=== PATIENT | female | born 1965 | race Caucasian/White ===

== ENCOUNTER → 2016-12-10 | Day surgery (SDC) | payer OTHER ==
[2016-11-30 11:50] VITALS: BMI 51.0
--- NOTE | 2016-12-03 09:36 | HISTORY & PHYSICAL EXAMINATION ---
DATE OF ADMISSION: 12/10/2016 SUBJECTIVE AND CHIEF COMPLAINT: Right shoulder pain. HISTORY OF PRESENT ILLNESS: The patient is a 51-year-old female who complains of right shoulder pain. She presents with pain and decreased range of motion on her right side. There was no traumatic event that caused her pain. The symptoms are occurring constantly. She describes the pain as aching and sharp. She had a previous cortisone injection 6 weeks ago with no relief. PAST MEDICAL HISTORY: Significant for anxiety, hypothyroidism, insulin-dependent diabetes, osteoarthritis and GERD. PAST SURGICAL HISTORY: Lumpectomy of the right breast, 5 biopsies of the right breast, total hysterectomy, right breast mastectomy, cleanup and debridement of incision. SOCIAL HISTORY: She denies alcohol use. She smokes 2-3 cigarettes a week. She denies IV drug use or illegal drug use. She lives in a 2-[address] house. 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 FAMILY HISTORY: Father has a history of heart disease. Mom had a history of pulmonary embolism. MEDICATIONS: Cholecalciferol, vitamin D3, amitriptyline 75 mg, furosemide 40 mg, alprazolam 1 mg, Chantix 1 mg, levothyroxine 112 mcg, Lyrica 200 mg, Bydureon 2 mg, Celebrex 200 mg, prednisone 10 mg, Protonix 40 mg, Humalog 100 units per mL, glimepiride 4 mg. ALLERGIES: PROZAC, WELLBUTRIN, EFFEXOR. REVIEW OF SYSTEMS: She denies fevers, chills, headaches, weight loss, double vision, blurry vision, sore throat, hearing loss, tremors, dizziness, numbness or tingling, tired, thirsty, hot and cold intolerance, abdominal pain, nausea, vomiting, diarrhea, heartburn, chest pain, swelling into the legs or feet, frequency going to the bathroom, pain or burning with urination, wheezing, cough, depression, thoughts to harm herself or harm others. She is positive for joint pain, stiffness and swelling of the right shoulder. Some shortness of breath walking up and down stairs. Nervousness and anxiousness. OBJECTIVE: GENERAL APPEARANCE: The patient is a 51-year-old female sitting in the exam room, no acute distress. She is well dressed, well nourished. She is awake, alert and oriented x3. VITAL SIGNS: Her height is 5 feet 1 inch, weight 278 pounds, blood pressure 132/84. HEENT: Extraocular movements are intact. PERRLA. Mucosa is moist. No septal deviation. NECK: Supple with no lymphadenopathy, no JVD, no thyromegaly. HEART: Regular rate and rhythm. No murmurs or gallops. LUNGS: Clear to auscultation but distant. No wheezing or rhonchi. ABDOMEN: Soft, nontender, nondistended. Normal bowel sounds. No hepatosplenomegaly. EXTREMITIES: Paying particular attention to the right upper extremity, she is able to actively flex to 150 degrees, abduct to 90 degrees, externally rotate to 70 degrees. She does have a positive empty can, positive Lee-Jose David, positive Neer impingement. She has decreased strength with all range of motion. NEUROLOGIC: Cranial nerves II-XII are intact. Pulses were compared bilaterally and were equal. IMAGING: MRI of the right shoulder without contrast showed advanced degenerative osteoarthritis of the glenohumeral joint, mild degenerative osteoarthritis at the AC joint, subacromial and subdeltoid bursitis, mild sized joint effusion, degenerative maceration of the anterior labrum. IMPRESSION: Right shoulder acromioclavicular osteoarthritis. PLAN: The patient is scheduled for a right shoulder arthroscopy with subacromial decompression and possible rotator cuff repair. The patient has failed cortisone injections and physical therapy. This has also decreased her ability to perform her activities of daily living. She would like to proceed with a right shoulder subacromial decompression and possible rotator cuff repair. Risks and benefits to the surgery were discussed, included but not limited to infection, DVT, pain, stiffness, need for revision surgeries, failure to relieve all symptoms, re-tear, damage to blood vessels, damage to nerves, risks of anesthesia were all discussed and she wishes to proceed. All questions were answered to her satisfaction. LEN
[~2016-12-10] VITALS: Ht 154.9 cm; Wt 126.4 kg
[~2016-12-10] MED LIST: ACETAMINOPHEN 325 MG TAB PO PRN; ALPR1TAB3 PO; AMT50 PO; ATROPINE SULFATE 0.1 MG/ML 5ML SYR IV PRN; BUPIVACAINE 0.5 % 5 MG/1 ML MPF 30ML VIAL ONE; CEFAZOLIN 3000 MG/65 ML D5W IV SCH; CLB/200 PO; DEXAMETHASONE SOD INJ 4 MG/ML VIAL ONE; EpHEDrine SULFATE 50MG/5ML SYR ONE; EpHEDrine SULFATE INJ 50 MG/ML AMP IV PRN; FENTANYL CITRATE INJ 50 MCG/1 ML 2 ML VIAL ONE; FLUT1INH INH; FRS/40 PO; GLIM4TAB2 PO; GLYCOPYRROLATE INJ 0.2 MG/ML VIAL ONE; HYDROmorphone INJ 2 MG/ML SYR/VIAL IV PRN; INSU100I2 INJ; INSU1INJ33 INJ; LACTATED RINGER'S 1000ML 1,000 ML IV SCH; LEVO112T2 PO; LIDOCAINE HCL 2% 2 ML VIAL (20MG/ML) ONE; LIDOCAINE/EPINEPHRINE 1% 20 ML VIAL ONE; MIDAZOLAM HCL 1 MG/ML 2ML VIAL ONE; MONT1TAB3 PO; NEOSTIGMINE METHYLSULFATE 5 MG/5 ML SYR ONE; ONDANSETRON INJ 2 MG/ML 2 ML VIAL IV PRN; ONDANSETRON INJ 2 MG/ML 2 ML VIAL ONE; OXYC-57 PO; OXYC7.5T65 PO; OXYCODONE/ACETAMINOPHEN 5-325 TAB PO PRN; PANT40TA PO; PHENYLEPHRINE 100MCG/ML 5ML SYR IV PRN; PREG200C PO; PROPOFOL IV EMULSION 10 MG/ML 20 ML VIAL IV ONE; ROCURONIUM BROMIDE 10 MG/ML 5 ML VIAL ONE; ROPIVACAINE 0.5% 5 MG/ML 30 ML VIAL ONE; VNTHFA/IN INH
--- NOTE | 2016-12-10 10:13 | History & Physical Bridge Note ---
H&P Re-Evaluation Bridge Note: I have examined the patient, reviewed the History & Physical and in the interval since the performance of the History & Physical I have noted the following changes of clinical significance: No changes noted
[2016-12-10 10:36] VITALS: BP 154/86; PULSE 66; TEMP 36.5; O2SAT 97; Ht 154.9 cm; Wt 126.4 kg
[2016-12-10 11:25] VITALS: PULSE 64; O2SAT 97
--- NOTE | 2016-12-10 13:30 | [facility] Post Operative Brief Note ---
Immediate Operative Summary Operative Date Dec 10, 2016. Pre-Operative Diagnosis Right shoulder imoingement, possible rct Post-Operative Diagnosis impingement, partial rct, biceps tendonosis, synovitis Procedure(s) Performed Right Shoulder Arthroscopic Subacromial Decompression, Biceps Tenotomy, Extensive Debridement Surgeon Dr. Whitaker Shoemaker Custom Surgeon(s) Eddie Domínguez PA-C Estimated Blood Loss 2 ml Findings above Specimens none per Surgeon Drains 0 Anesthesia geta Complication(s) None Disposition Recovery Room / PACU
--- NOTE | 2016-12-10 13:55 | Discharge Instructions ---
Discharge Instructions Date of Service Dec 10, 2016. Admission Reason for Admission: Right Shoulder Impingement Syndrome Discharge Discharge Diagnosis / Problem: Right shoulder SAD, Biceps tenotomy, extensive debridement Discharge Goals Goal(s): Decrease discomfort, Improve function Activity Recommendations Activity Limitations: per Instructions/Follow-up section Instructions / Follow-Up Instructions / Follow-Up [facility] DISCHARGE INSTRUCTIONS: SHOULDER ARTHROSCOPY with or without Distal Clavicle Excision SELF CARE INSTRUCTIONS AFTER: A. You are allowed to use your arm actively as comfort allows. Recommend NOT doing repetitive overhead activity or heavy lifting. B. You should start Physical Therapy within 1-3 days from your surgery. You will be provided a prescription with specific restrictions, if needed, at time of discharge. C. You can discontinue the sling as comfort allows within one to two days after surgery. A. At 48 hours post-operatively, you may change your dressing. . (Leave white steri-strips intact if present). Use band-aids and change daily. You are allowed to shower at this time and get the incision area wet, but DO NOT soak or submerge incision area in water. (No baths, swimming pools, hot tubs) B. Do NOT apply soap or any ointment/lotions directly over incision. C. You may use ice as needed to operative shoulder SPECIAL CARE INSTRUCTIONS: VERY IMPORTANT TO READ AND REVIEW A. There are a few signs you need to watch for after you are home. Call [facility] at [phone] if you experience any of the following: a. Increased severe shoulder pain. Some pain is expected especially when you exercise b. Increased swelling in your shoulder or arm; pain or swelling in either upper extremity. (Note: swelling and stiffness is normal and expected for several weeks post op, depending on type of shoulder surgery you had). c. Any fluid or drainage from the incision; redness of the incision. d. Shortness of breath or chest pain. B. Please call [facility] at [phone] if you have any questions or concerns about your operation or recovery. C. Call your physician if: a. Temperature is greater than 101 degrees (F). b. Pain is not relieved by prescribed pain medications. c. Increase drainage or redness from incision. d. Unanswered questions or concerns. D. Pain Medication: a. You will be prescribed pain medication upon discharge that should last till your first post-operative appointment. b. You may also take Advil or Ibuprofen between medication doses if you do not have any contraindication to taking them. c. You may also take Advil or Ibuprofen in place of your pain medication if the pain is tolerable. d. If you experience nausea and/or skin rash, discontinue this medication and contact our office for an alternative medication. e. Caution- narcotic pain medication can cause constipation. FOLLOW UP VISIT: Please call [facility] at [phone] to schedule a follow up appointment 10-14 days from your surgery date. Current Hospital Diet Patient's current hospital diet: Regular Diet Discharge Diet Recommended Diet: Diabetes Type 2 Diet Procedures Procedures Performed: Right Shoulder Arthroscopic Subacromial Decompression, Biceps Tenotomy, Extensive Debridement Pending Studies Studies pending at discharge: no Medical Emergencies . Who to Call and When: Medical Emergencies: If at any time you feel your situation is an emergency, please call 911 immediately. . Non-Emergent Contact Non-Emergency issues call your: Surgeon Call Non-Emergent contact if: temperature is above 101, wound has increased drainage, wound has increased redness, wound has increased pain . "Provider Documentation" section prepared by Eddie Domínguez. VTE Core Measure Inpt VTE Proph given/why not?: Treatment not indicated [place] Drug Monitoring Program Search Results: patient reviewed within database, no issues identified
[2016-12-10 14:20] VITALS: BP 134/89; PULSE 54; TEMP 36.5; O2SAT 93
[2016-12-10 14:50] VITALS: BP 137/74; PULSE 52; TEMP 36.6; O2SAT 94
--- NOTE | 2016-12-10 15:17 | OPERATIVE REPORT ---
DATE OF OPERATION: 12/10/2016 PREOPERATIVE DIAGNOSES: Right shoulder impingement and possible rotator cuff tear. POSTOPERATIVE DIAGNOSES: Right shoulder impingement, partial thickness rotator cuff tear, biceps tendinosis labral tear, and synovitis. PROCEDURES: Right shoulder subacromial decompression, biceps tenotomy and extensive debridement. SURGEON: Dr. Whitaker. DIGITAL STRATEGIST SENIOR MANAGER: Eddie Domínguez PA-C who was necessary for assistance of procedure with positioning, prepping, draping, retraction and closure. ANESTHESIA: General endotracheal anesthesia with interscalene block. SPECIMENS: None. COMPLICATIONS: None. ESTIMATED BLOOD LOSS: Minimal. INDICATIONS: The patient is a 51-year-old female with longstanding pain in the right shoulder. She has failed conservative measures including cortisone injection, physical therapy, and anti-inflammatory medications. Failing conservative measures, she wished to proceed with arthroscopy. Risks, benefits, and alternatives of surgery including but not limited to infection, DVT, pain, stiffness, need for urgent surgery, failure to relieve all symptoms, damage to blood vessels, damage to nerves, and risks of anesthesia were discussed with the patient and she wished to proceed. DESCRIPTION OF PROCEDURE: The patient was identified, laterality was confirmed and marked. She received a preoperative antibiotic as well as an interscalene block. She was transferred to the operating room, placed in supine position, induced general endotracheal anesthesia per the anesthesia staff. She was transferred to lateral decubitus position, secured by askew bag and axillary roll was placed. All pressure points were well padded. Limb was placed in 12 pounds of lateral traction, prepped and draped in usual sterile manner with ChloraPrep. Port sites were anesthetized with 1% lidocaine with epinephrine. I made a standard posterior viewing portal, made a stab incision, bluntly entered the glenohumeral joint under spinal localization, established anterior superior lateral portal. She has degenerative tearing of the anterior superior aspect of the glenoid labrum. This was debrided back to a stable base utilizing shaver. I released the biceps tendon from its insertion with electrocautery wand to remove the biceps as a pain generator. She has some mild undersurface fraying of the rotator cuff that was debrided. The vast majority insertion was normal. She had fairly extensive degenerative change of the humeral head as well as glenoid. She had some enumerated exposed bone on the humeral side, had some mild grade 3, as well as some small region of grade 4 change on the glenoid side. Synovitic changes debrided utilizing combination of shaver as well as TurboVac ablator. I then removed the instrumentation from the joint and entered the subacromial space and established a lateral portal. She had some mild bursal sided fraying that was debrided. Rotator cuff was otherwise intact. I then released the CA ligament with cautery, performed a subacromial decompression first removing the anterior inferior spur from laterally and then completing a cutting block technique. All instrumentation was removed from the shoulder. Port sites were closed with nylon. Sterile dressing was applied. All needle and sponge counts were correct at the end of the procedure. The patient was transferred to the PACU in stable condition without apparent complication. I attest to the content of the Intraoperative Record and any orders documented therein. Any exceptio ns are noted below.
[2016-12-10 15:20] VITALS: BP 118/81; PULSE 59; TEMP 36.6; O2SAT 93
--- NOTE | 2016-12-10 17:19 | Anesthesiology Progress Note ---
Anesthesia Post Op Note Date & Time Dec 10, 2016 at 17:20 Vital Signs Pain Intensity: 0 Vital Signs Past 12 Hours Date Time Temp Pulse Resp B/P Pulse Ox O2 Delivery O2 Flow Rate FiO2 12/10/16 15:20 36.6 59 16 118/81 93 Room Air 12/10/16 14:50 36.6 52 16 137/74 94 Room Air 12/10/16 14:20 36.5 54 16 134/89 93 Room Air 12/10/16 14:11 55 15 151/57 94 12/10/16 14:11 55 15 12/10/16 14:11 36.3 12/10/16 14:06 58 17 12/10/16 14:06 57 17 92 12/10/16 14:05 57 18 12/10/16 14:05 56 18 111/84 92 12/10/16 14:01 134/72 12/10/16 14:00 62 20 12/10/16 14:00 62 20 92 12/10/16 13:55 58 17 12/10/16 13:55 58 17 126/80 92 12/10/16 13:50 52 17 144/69 99 12/10/16 13:50 56 17 12/10/16 13:45 53 16 148/72 12/10/16 13:45 16 12/10/16 13:40 59 18 140/71 98 12/10/16 13:40 59 18 12/10/16 13:35 64 22 167/85 99 12/10/16 13:35 65 22 12/10/16 13:30 71 15 12/10/16 13:30 70 15 167/73 97 12/10/16 13:30 36.5 73 18 167/73 99 Mask 10 12/10/16 11:25 64 18 97 Room Air 12/10/16 10:36 36.5 66 20 154/86 97 Room Air Notes Mental Status: alert / awake / arousable, participated in evaluation Pt Amnestic to Procedure: Yes Nausea / Vomiting: adequately controlled Pain: adequately controlled Airway Patency, RR, SpO2: stable & adequate BP & HR: stable & adequate Hydration State: stable & adequate Anesthetic Complications: no major complications apparent
== END | disposition home or self-care (01) ==
LOC: C.ACU 09:59
PROVIDERS: ATTEND Orthopaedic Surgery
DX: M75.101 Unspecified rotator cuff tear or rupture of right shoulder, not specified as traumatic (principal); M75.41 Impingement syndrome of right shoulder; M75.21 Bicipital tendinitis, right shoulder; M65.9 Synovitis and tenosynovitis, unspecified; K21.9 Gastro-esophageal reflux disease without esophagitis; F41.9 Anxiety disorder, unspecified; M17.9 Osteoarthritis of knee, unspecified; E11.9 Type 2 diabetes mellitus without complications; Z79.4 Long term (current) use of insulin; Z98.890 Other specified postprocedural states